=== PATIENT | male | born 1970 | race Caucasian/White ===

== ENCOUNTER → 2017-11-11 | Outpatient (CLI) | payer BC ==
--- NOTE | 2017-11-11 15:42 | NM ---
EXAMINATION TYPE: NM hepatobiliary w EF DATE OF EXAM: 11/11/2017 COMPARISON: NONE INDICATION: Biliary colic TECHNIQUE: After the intravenous administration of 4.91 mCi Tc 99m Mebrofenin hepatobiliary scintigra phy is performed. Images were obtained immediately post injection. FINDINGS: There is prompt uptake and excretion of radiotracer by the liver. Extrahepatic ducts are identified at 17 minutes. The gallbladder is visualized within 13 minutes. Small bowel activity is noted within 42 minutes. At one hour 8 ounces of oral ensure plus is given to mimic CCK and gallbladder ejection fraction is c alculated at 64 %, which is in the normal range. (Normal >35% and <80%.). IMPRESSION: 1. Normal hepatobiliary scan
== END ==
LOC: RADNMMAIN 12:53
PROVIDERS: ATTEND Family Medicine
DX: K80.50 Calculus of bile duct without cholangitis or cholecystitis without obstruction (principal)
CPT/HCPCS: 78226; A9537

== ENCOUNTER → 2018-05-05 | Outpatient (CLI) | payer BC ==
[2018-05-05 13:08] VITALS: BP 123/82; PULSE 71; RESP 18
--- NOTE | 2018-05-06 19:21 | P.PAINCN ---
History of Present Illness - Reason for Consult Consult date: 05/05/18 - History of Present Illness This is initial consultation visit for this 47 years old male, with a chronic history of severe neck pain with radiation to the upper extremities, associated with some numbness, and headache, the symptoms started 6 years ago after he hit his head at home, he denies any motor or sensory deficit he denies any fever or night sweats. Denies any change in the bowel movement or urination, pain is constant, with intensity of the pain 6-8/10, he tried physical therapy and he couldn't tolerate it because of increased pain, and he tried medication without any significant benefit, he had epidural steroid injection at different institution and he had excellent pain relief Past Medical History Past Medical History: GERD/Reflux, Hypertension History of Any Multi-Drug Resistant Organisms: None Reported Additional Past Surgical History / Comment(s): varicous vein surgery, endoscopy Past Anesthesia/Blood Transfusion Reactions: No Reported Reaction Past Psychological History: Anxiety Smoking Status: Never smoker Past Alcohol Use History: None Reported Past Drug Use History: None Reported Medications and Allergies Home Medications Medication Instructions Recorded Confirmed Type Ascorbic Acid [Vitamin C] 1 tab PO DAILY 05/05/18 05/05/18 History Butalb/Acetaminophen/Caffeine 1 tab PO DIRECTED 05/05/18 05/05/18 History [Fioricet 50-300-40 mg Capsule] Calcium Carbonate/Vitamin D3 1 tab PO DAILY 05/05/18 05/05/18 History [Caltrate 600 Plus D3 Tablet] Cyclobenzaprine [Flexeril] 1 tab PO DAILY 05/05/18 05/05/18 History D3/Folic Acid/Collagen,Hydroly 125 mg PO DAILY 05/05/18 05/05/18 History [Cyfolex Capsule] Esomeprazole Magnesium [NexIUM] 1 tab PO BID 05/05/18 05/05/18 History Esomeprazole Magnesium [NexIUM] 1 tabcap PO BID 05/05/18 05/05/18 History L.acidoph,Paracasei, B.lactis 1 tab PO DAILY 05/05/18 05/05/18 History [Probiotic] LORazepam [Ativan] 1 tab PO BID 05/05/18 05/05/18 History Metoprolol Tartrate 1 tab PO BID 05/05/18 05/05/18 History Multivitamin/Iron/Folic Acid 1 tab PO DAILY 05/05/18 05/05/18 History [Centrum Complete Multivit Tab] Venlafaxine HCl [Effexor] 1 tab PO DAILY 05/05/18 05/05/18 History Allergies Allergy/AdvReac Type Severity Reaction Status Date / Time cephalexin [From Keflex] AdvReac Diarrhea Verified 05/05/18 12:56 Physical Exam Social history : not smoker , NO ETOH , NO Illegal drugs use . Review of Systems : 1- Constitutional : no chills , no fever , no night sweats , 2- Ears : no ear discharge , no change in hearing 3-Nose, Mouth ,Throat ; no bleeding gums, no sore throat , no epistaxis , 4-Cardiovascular : Denies chest pain, , no orthopnea , no palpitation 5-Respiratory : Denies cough , no dyspnea , no hemoptysis 6-Gastrointestinal :, no change in bowel habits , no coffee- ground emesis . 7-Genitourinary : No hematuria , no discharge , no incontinence, 8-Musculoskeletal : No gait dysfunction , report neck pain , 9- Neurological : no ataxia , no tremor , no sezure , 10-Psychatric , no suicidal ideation no hallucination 11- Endocrine : no cold intolerence , no polyuria , no polydypsia , 12-Hematologic : no easy bleeding , no easy brusing , 13-Allergic / immunology : no angioedema , no wheezing ,no allergic rhinitis 14-Integumentary : no brttle nails , no change hair / nails , no foot/leg ulcers . Physical Examinations : 1-Constitutional : Cooperative , not in acute distress . 2-HEENT : nech ; supple , no Lymphadenopathy , no Thyromegaly , :eyes , no icterus, no photophobia . ENT : , normal oropharynx , no Thrush 3- Respiratory : Chest clear to auscultations Bilaterally , no wheezing . 4- Cardiovascular : regular rate and rhythem , S1 , S2 , no S3 , no S4. 5- Gastrointestinal: abdomen soft no tenderness , no organomegally . 6- Genitourinary : Defferred . 7-Integumentary : No cellulitis , no ulcers , normal skin turgor , no cyanotic . 8- neurologic : Cranial nerve II to XII intact , no focal neurological deffecit 9-psychatric : alert , oriented X 3 , appropriate affect , intact judgment and insight . 10-Lymphatic : no Lymphadenopathy. 11- musculoskeltal: normal gait Cervical Spine motor stregnth in the deltoid and biceps, normal right side , normal Left side motor stregnth biceps and the wrist extensors normal right side ,normal left side . motor stregnth in the triceps muscle . normal Right side , normal Left side deep tendon reflexes normal at the biceps , normal at Brachioradialis , normal at triceps. positive cervical facet loading test . Lumber spine moter stegnth lower extremities ,thigh and legs 5/5 Right side , 5/5 Left side Results Comments: MRI of the cervical spine C3 4 C5 6 C6 7 cervical degenerative disc disease and facet arthropathy and foraminal narrowing Assessment and Plan Plan: Assessment and plan= cervical radiculopathy, cervical spondylosis with cervical facet arthropathy. He would be a good candidate for cervical epidural steroid injections, procedure risk and benefits and alternatives discussed with the patient he agreed with the preceding Time with Patient: Greater than 30 PQRS Measure Charge Sheet Measure #130: Documentation of Current Meds in Medical Chart: Patient's medications documented in chart Measure #226: Tobacco Use: Screen & Cessation Intervention: Pt not a tobacco user Measure #111: Pneumonia Vaccination: Pneumococcal vaccine NOT administered or previously given Measure #47: Advance Care Plan: Advance care planning discussed & documented, pt chose/unable to give Measure #412: Opioid Treatment Agreement: No documentation of signed opioid treatment agreement Measure #408: Opioid Therapy Follow-up Evaluation: Patient had NO f/u eval minimum every 3 months during opioid therapy Measure #317: Preventitive Care & Scrn High Bld Press & F/U: Normal blood pressure, f/u not required Measure #128: Body Mass Index (BMI) Screening & Follow-up: BMI documented ABOVE normal parameters - f/u documented Measure #131: Pain Assessment & Follow-up: Pain positive & plan documented, Follow-up scheduled Measure #431: Unhealthy Alcohol Use Preventative Care & Scrn: Patient not identified as an unhealthy alcohol user PQRS Narrative: Smoking Status Never smoker Do You Want the Pneumonia No Vaccine AT THIS TIME? Blood Pressure 123/82 Pain Intensity [Neck] 8 Scale Used Numeric (1 - 10) Hx Alcohol Use (MH) No Home Medications: Ambulatory Orders Ascorbic Acid [Vitamin C] 1 tab PO DAILY 05/05/18 Butalb/Acetaminophen/Caffeine [Fioricet 50-300-40 mg Capsule] 1 tab PO DIRECTED 05/05/18 Calcium Carbonate/Vitamin D3 [Caltrate 600 Plus D3 Tablet] 1 tab PO DAILY Cyclobenzaprine [Flexeril] 1 tab PO DAILY 05/05/18 D3/Folic Acid/Collagen,Hydroly [Cyfolex Capsule] 125 mg PO DAILY 05/05/18 Esomeprazole Magnesium [NexIUM] 1 tab PO BID 05/05/18 Esomeprazole Magnesium [NexIUM] 1 tabcap PO BID 05/05/18 L.acidoph,Paracasei, B.lactis [Probiotic] 1 tab PO DAILY 05/05/18 LORazepam [Ativan] 1 tab PO BID 05/05/18 Metoprolol Tartrate 1 tab PO BID 05/05/18 Multivitamin/Iron/Folic Acid [Centrum Complete Multivit Tab] 1 tab PO DAILY 06/12 Venlafaxine HCl [Effexor] 1 tab PO DAILY 05/05/18
== END | disposition home or self-care (01) ==
LOC: PNWHC3 12:07
PROVIDERS: ATTEND Specialist
DX: M47.22 Other spondylosis with radiculopathy, cervical region (principal); M46.92 Unspecified inflammatory spondylopathy, cervical region; Z88.1 Allergy status to other antibiotic agents; K21.9 Gastro-esophageal reflux disease without esophagitis; I10 Essential (primary) hypertension; F41.9 Anxiety disorder, unspecified; Z79.899 Other long term (current) drug therapy
CPT/HCPCS: 99211

== ENCOUNTER → 2018-05-24 | Day surgery (SDC) | payer BC ==
[2018-05-20 08:51] VITALS: BMI 27.2
[2018-05-24 09:25] VITALS: TEMP 7.6
--- NOTE | 2018-05-24 10:29 | P.PCN ---
Date of Procedure: 05/24/18 Procedure(s) Performed: . PROCEDURE 1. Cervical epidural steroid injection under fluoroscopic guidance, C7-T1 2. Cervical epidurogram. PREOPERATIVE DIAGNOSIS: 1- Cervical radiculopathy., 2-cervical spondylosis with cervical Facet arthropathy without myelopathy POSTOPERATIVE DIAGNOSIS: : 1- Cervical radiculopathy, 2-cervical spondylosis with cervical Facet arthropathy without myelopathy ANESTHESIA: Local anesthesia with lidocaine 1 % , and moderate sedation, with Versed 2 mg and Fentanyl 100 mcg. EBL 0 PROCEDURE INDICATION: The patient with neck pain and radiculitis unresponsive to conservative treatment consents for procedure. PROCEDURE DESCRIPTION / TECHNIQUE: The patient was seen and identified in the preoperative area. Risks, benefits, complications, including but not limited to infections ,bleeding , allergic reactions to the medications ,and not complete pain releife, and alternatives were discussed with the patient, the patient agreed to proceed with the procedure and signed the consent. Patient was taken to the OR and time out was completed. The patient was placed in the prone position on the procedure table. A pillow was placed under the patients chest to increase the cervical interlaminar space. The cervical area was prepped and draped in the usual sterile fashion. Vital signs were closely monitored during the procedure. Conscious sedation was used during the procedure to decrease patients anxiety. Using anterior-posterior fluoroscopy, the C7-T1 interlaminar space was identified and the skin over this site was marked and then infiltrated with 1% lidocaine subcutaneously. Subsequently, a 20-gauge 3-1/2-inch Tuohy epidural needle was inserted and advanced toward the epidural space by means of the `` hanging-drop technique and guided by AP and lateral fluoroscopy. The correct needle position in the epidural space was verified with the injection of 2 mL of the water soluble contrast dye Isovue-200 and observing an excellent epidurogram with the epidural spread of the dye, after negative aspiration for blood and CSF and in the absence of paresthesias. Again after negative aspiration, mixture containing 20 mg Dexamethasone and 2 ml of preservative- free normal saline injected and a washout of epidurogram was seen. Needle was withdrawn intact, skin was cleansed, and bandages were applied. Complications= none. Disposition= patient was placed in supine position and transferred to the recovery room area in stable condition and there was no evidence of upper or lower extremity motor or sensory deficit after the procedure patient was discharged from recovery room after discharge criteria met and home discharge instructions was given by the staff and patient will follow with the pain clinic in 2-4 weeks
--- NOTE | 2018-05-24 10:56 | FL ---
EXAMINATION TYPE: FL guided pain mgmt statistic DATE OF EXAM: 05/24/2018 HISTORY: Pain Cervical epidural, steroid injection, 1sec fl time
[2018-05-24 11:12] VITALS: BP 127/91; PULSE 56; RESP 18
== END ==
LOC: ORPAIN 08:24
PROVIDERS: ATTEND Specialist
DX: Z88.1 Allergy status to other antibiotic agents (principal); I10 Essential (primary) hypertension; K21.9 Gastro-esophageal reflux disease without esophagitis
CPT/HCPCS: 62321

== ENCOUNTER → 2018-06-14 | Day surgery (SDC) | payer BC ==
[2018-06-09 11:37] VITALS: BMI 27.2
[~2018-06-14] MED LIST: SODIUM CHLORIDE 0.9% 500 ML 500 ML IV ONE
[2018-06-14 08:51] VITALS: TEMP 97.4
--- NOTE | 2018-06-14 09:43 | P.PCN ---
Date of Procedure: 06/14/18 Surgeon: Reji De Oliveira Description of Procedure: PREOPERATIVE DIAGNOSIS: Cervical radiculopathy Cervical degenerative disc disease POSTOPERATIVE DIAGNOSIS: Cervical radiculopathy Cervical degenerative disc disease PROCEDURE Cervical epidural steroid injection under fluoroscopic guidance at the C7-T1 interspace. ANESTHESIA: Local with 1% lidocaine 3 ml and IV sedation with Versed 2 mg ; 100 pg of fentanyl EBL: Minimal PROCEDURE INDICATION: The patient with cervical radicular symptoms unresponsive to conservative treatment. Fluoroscopy was used to optimize visualization of the needle placement and to maximize safety. He reports good relief from his last procedure. Most of his pain is in his neck. PROCEDURE DESCRIPTION / TECHNIQUE: The patient was seen and identified in the preoperative area. Risks, benefits , complications including but not limited to infections ,bleeding ,allergic reaction to the medications ,nerve damage and incomplete pain relief, and alternatives were discussed with the patient. The patient agreed to proceed with the procedure and signed the consent. IV was started, and vital signs were stable. Patient was taken to the OR and time out was completed. The patient was placed in the prone position on procedure table and a pillow was placed under the chest area.. The cervical area was prepped and draped in the usual sterile fashion. Conscious sedation was used during the procedure to decrease patient s anxiety. Vital signs was monitered during the entire procedure. Using anterior-posterior fluoroscopy, the C7-T1 interlaminar space was identified and the skin over this site was marked and then infiltrated with 1% lidocaine subcutaneously. Subsequently, a 20-gauge Tuohy epidural needle was inserted and advanced toward the epidural space using the loss of resistance technique and guided by AP and lateral fluoroscopy. The correct needle position in the epidural space was verified with the injection of contrast and observing an excellent epidurogram with the epidural spread of the dye, after negative aspiration for blood and CSF and in the absence of paresthesias. Again after negative aspiration, a 4 ml mixture containing 20 mg of Dexamethasone was injected. Needle was withdrawn intact, skin was cleansed, and bandages were applied. COMPLICATIONS: None DISPOSITION / PLANS: The patient was placed in a supine position and transferred to the recovery area in a stable condition for observation. There was no evidence of lower extremity motor or sensory deficit after the procedure. Patient was discharged from the recovery room after meeting discharge criteria. Home discharge instructions were given to the patient by the staff. The patient was reexamined prior to discharge. The patient will schedule a follow up in the clinic in 2-4 weeks.
--- NOTE | 2018-06-14 09:59 | FL ---
EXAMINATION TYPE: FL guided pain mgmt statistic DATE OF EXAM: 06/14/2018 CLINICAL HISTORY: Neck pain. TECHNIQUE: Fluoroscopy. COMPARISON: None. FINDINGS: Fluoroscopic guidance was provided during pain relief procedure performed by Dr. De Oliveira . A total of 1 second of fluoroscopic time was utilized during the procedure and single spot fluorosco pic image is acquired. Single image acquired shows needle localization at upper thoracic spine. IMPRESSION: As Above.
[2018-06-14 10:11] VITALS: BP 125/81; PULSE 57; RESP 18
== END | disposition home or self-care (01) ==
LOC: ORPAIN 08:16
PROVIDERS: ATTEND Pain Medicine Pain Medicine
DX: M50.10 Cervical disc disorder with radiculopathy, unspecified cervical region (principal); Z88.1 Allergy status to other antibiotic agents; I10 Essential (primary) hypertension; K21.9 Gastro-esophageal reflux disease without esophagitis
CPT/HCPCS: 62321; J2250; J1100; J3010; 99152

== ENCOUNTER 2018-06-30 09:17 | Day surgery (SDC) | payer BC ==
[2018-06-28 10:51] VITALS: BMI 27.9
[2018-06-30 09:33] VITALS: RESP 18; TEMP 97.8
[2018-06-30] MEDS ORDERED: LACTATED RINGERS 1,000 ML IV ONE (09:33)
[2018-06-30] MEDS ORDERED: LIDOCAINE 1% 20 ML VIAL (10MG/ML) FOR IV START INTRADERMA ONE (09:40)
--- NOTE | 2018-06-30 09:43 | P.PCN ---
Date of Procedure: 06/30/18 Preoperative Diagnosis: Cervical radiculopathy Postoperative Diagnosis: Same Procedure(s) Performed: Cervical epidural steroid injection Anesthesia: MAC Surgeon: Vijaya Silva Description of Procedure: . PROCEDURE 1. Cervical epidural steroid injection under fluoroscopic guidance, C7-T1 #3 2. Cervical epidurogram. PREOPERATIVE DIAGNOSIS: 1- Cervical Degenerative Disc Diseases 2- Cervical radiculopathy., 3-cervical spondylosis with cervical Facet arthropathy without myelopathy POSTOPERATIVE DIAGNOSIS: : 1- Cervical Degenerative Disc Diseases , 2- Cervical radiculopathy. 3-,cervical spondylosis with cervical Facet arthropathy without myelopathy ANESTHESIA: Local anesthesia with 1% lidocaine and IV sedation with Versed 1 mg and Fentanyl 50 mcg. EBL 0 PROCEDURE INDICATION: The patient with neck pain and radiculitis unresponsive to conservative treatment consents for procedure. PROCEDURE DESCRIPTION / TECHNIQUE: The patient was seen and identified in the preoperative area. Risks, benefits, complications, including but not limited to infections ,bleeding , allergic reactions to the medications ,and not complete pain Relief, and alternatives were discussed with the patient, the patient agreed to proceed with the procedure and signed the consent. Patient was taken to the OR and time out was completed. The patient was placed in the prone position on the procedure table. A pillow was placed under the patients chest to increase the cervical interlaminar space. The cervical area was prepped and draped in the usual sterile fashion. Vital signs were closely monitored during the procedure. Conscious sedation was used during the procedure to decrease patients anxiety. Using anterior-posterior fluoroscopy, the C7-T1 interlaminar space was identified and the skin over this site was marked and then infiltrated with 1% lidocaine subcutaneously. Subsequently, a 20-gauge 3-1/2-inch Tuohy epidural needle was inserted and advanced toward the epidural space by means of loss of resistance technique and guided by AP and lateral fluoroscopy. The correct needle position in the epidural space was verified with the injection of 2 mL of the water soluble contrast dye Isovue-180 and observing an excellent epidurogram with the epidural spread of the dye, after negative aspiration for blood and CSF and in the absence of paresthesias. Again after negative aspiration, mixture containing 20 mg Dexamethasone and 2 ml of preservative- free normal saline injected and a washout of epidurogram was seen. Needle was withdrawn intact, skin was cleansed, and bandages were applied. Complications= none. Disposition= patient was placed in supine position and transferred to the recovery room area in stable condition and there was no evidence of upper or lower extremity motor or sensory deficit after the procedure patient was discharged from recovery room after discharge criteria met and home discharge instructions was given by the staff and patient will follow with the pain clinic 6-8 weeks
[2018-06-30] MEDS ORDERED: IV FLUID CONTINUATION 800 ML IV ONE (10:00)
[2018-06-30 10:24] VITALS: BP 124/80; PULSE 62
--- NOTE | 2018-06-30 11:50 | FL ---
EXAMINATION TYPE: FL guided pain mgmt statistic DATE OF EXAM: 06/30/2018 COMPARISON: NONE HISTORY: Neck pain TECHNIQUE: Fluoroscopy. FINDINGS/IMPRESSION: Fluoroscopic guidance was provided during procedure performed by Dr. Silva. A total of 1 seconds of fluoroscopic time was utilized during the procedure and 1 spot images was acq uired demonstrating localization of the cervical spine.
== END 2018-06-30 10:36 | disposition home or self-care (01) ==
LOC: ORPAIN 09:17
PROVIDERS: ATTEND Hospitalist
DX: M50.10 Cervical disc disorder with radiculopathy, unspecified cervical region (principal); M47.22 Other spondylosis with radiculopathy, cervical region
CPT/HCPCS: 62321; J2250; J1100; J3010; Q9966; 62323

== ENCOUNTER → 2018-08-11 | Outpatient (CLI) | payer BC ==
--- NOTE | 2018-08-11 20:54 | MR ---
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 Additional coned-do wn sequences through the internal auditory canals and posterior cranial fossa before and after IV con trast administration. FINDINGS: Diffusion weighted images demonstrate no evidence of an acute ischemic lesion in the brain. T2/FLAIR weighted sequences show no white matter signal abnormality. The left vertebral artery is dominant. Major intracranial flow voids are intact. There is a 6 mm T2 bright and T1 hypointense, hypoenhancing round lesion within the right paramedian anterior pituitary gland. Otherwise, midline structures demonstrate partially empty sella but otherwi se normal morphology. The craniocervical junction is normal. Brain volume is age appropriate. The ventricles are of normal caliber. There is no evidence of an acute intracranial hemorrhage, infarct, mass, mass-effect or an extra-axia l fluid collection. There is no cerebellopontine angle mass. The internal auditory canals are symmetric. Brainstem and skull base abnormalities are not seen. Post contrast images demonstrate no evidence of pathologic enhancement in the posterior cranial fossa or the internal auditory canals. Stable incidental prominent arachnoid granulations in the left sigmoid sinus. Dural venous sinuses re main patent. There is no abnormal enhancement of the labyrinths. Trace mucosal thickening within the ethmoid air cells. Globes are intact. IMPRESSION: 1. No acute intracranial abnormality seen. No white matter signal abnormality. 2. No specific abnormality on acoustic MRI. 3. Incidental cystic versus hypoenhancing, 6 mm lesion within the right paramedian anterior pituitary gland. Some differential considerations include Rathke's cleft cyst or pituitary microadenoma, new f rom 2012. Correlate with laboratory assessment. Pituitary MRI can further evaluate.
== END | disposition home or self-care (01) ==
LOC: RADMRIMAIN 12:13
PROVIDERS: ATTEND Otolaryngology
DX: H93.3X9 Disorders of unspecified acoustic nerve (principal); H93.19 Tinnitus, unspecified ear; H91.90 Unspecified hearing loss, unspecified ear
CPT/HCPCS: 82565; 70553; 36415; A9585

== ENCOUNTER → 2018-08-22 | Outpatient (CLI) | payer BC ==
--- NOTE | 2018-09-04 21:42 | EEG ---
ELECTROENCEPHALOGRAM REPORT DATE OF SERVICE: 08/22/2018 ATTENDING PHYSICIAN: Dr. Victoria. VIDEO ELECTRONYSTAGMOGRAPHIC REPORT: AGE: 48 ENG INDICATIONS: Dizziness, vertigo with the problem beginning one year ago, gradual onset, getting worse. Occurs four to five times a week and dizziness lasts one to two minutes at a time. Dizziness can be precipitated by any position changes or worsened by any position changes or when in the car driving or moving ahead or in large crowds. The patient reports left hearing loss and tinnitus in both ears of a steady ringing nature and pressures in left ear. Dizziness can be accompanied by lightheadedness and headaches and can have transient double vision. VNG FINDINGS: SPONTANEOUS NYSTAGMUS: SACCADES: Saccades shows intact peak velocities, accuracies and latencies. GAZE TEST: Gaze with fixation shows no nystagmus in any of the directions of gaze including centrally with vision denied. SINUSOIDAL TRACKING: Tracking is intact at faster and slower speeds. OKN TEST: Optokinetic nystagmus shows significant asymmetry more than 50% with the patient having more difficulty looking to the left. CRUZ-HALLPIKE TEST: Cruz Hallpike maneuver is negative bilaterally although the patient has significant horizontal nystagmus in the right position and significant vertical nystagmus in the left position. However, dizziness is not reported with either ear under most periods. POSITION TEST: Static position testing shows no nystagmus in any of the six positions tested with eyes opened or with vision denied. CALORIC TEST: Caloric testing shows no unilateral caloric weakness. There is borderline bilateral weakness. IMPRESSION: Asymmetry of optokinetic nystagmus suggests central nervous system dysfunction. There were no other indicators for central nervous systems system dysfunction. Cerro-Hallpike maneuvers while there was no dizziness reported, the patient had a moderate degree of upbeat nystagmus on the left, which is an abnormal response suggesting central nervous system dysfunction. However no nystagmus is elicited on the static position testing including on the left side, so should be interpreted with caution. Clinical correlation is necessary. MMODL / IJN: [id number] /
== END | disposition home or self-care (01) ==
LOC: NEUROMAIN 08:40
PROVIDERS: ATTEND Otolaryngology
DX: H55.09 Other forms of nystagmus (principal); R42 Dizziness and giddiness
CPT/HCPCS: 92537; 92540

== ENCOUNTER → 2018-10-05 | Outpatient (CLI) | payer BC ==
[2018-10-05 18:41] LABS: Albumin 4.3 g/dL (3.80-4.90); Albumin/Globulin Ratio 1.87 (1.60-3.17); Anion Gap 6.3 mmol/L (4.00-12.00); Calcium 7.4 mg/dL (8.7-10.3); Carbon Dioxide 30.7 mmol/L (21.6-31.8); Globulin 2.3 g/dL (1.6-3.3); Phosphorus 3.7 mg/dL (2.4-5.1); Potassium 4.1 mmol/L (3.5-5.5); Total Bilirubin 0.5 mg/dL (0.3-1.2); Total Protein 6.6 g/dL (6.2-8.2)
== END | disposition home or self-care (01) ==
LOC: LABWHC1 13:04
PROVIDERS: ATTEND Internal Medicine
DX: E20.0 Idiopathic hypoparathyroidism (principal)
CPT/HCPCS: 36415; 80053; 84100

== ENCOUNTER → 2018-12-09 | Outpatient (CLI) | payer BC ==
[2018-12-09 18:59] LABS: Anion Gap 5.9 mmol/L (4.00-12.00); Calcium 7.6 mg/dL (8.7-10.3); Carbon Dioxide 31.1 mmol/L (21.6-31.8); Potassium 3.6 mmol/L (3.5-5.5)
[2018-12-09 20:55] LABS: Gliadin AB IgA, Unit <0.2 U/mL
== END ==
LOC: LABWHC1 11:22
PROVIDERS: ATTEND Allergy & Immunology
DX: E20.9 Hypoparathyroidism, unspecified (principal); K21.9 Gastro-esophageal reflux disease without esophagitis
CPT/HCPCS: 36415; 80048; 81050; 82784; 83516; 86255

== ENCOUNTER → 2019-02-20 | Outpatient (CLI) | payer BC ==
[2019-02-20 17:14] LABS: African American GFR (CKD) 102.7 (60.0-200.0); Anion Gap 9.9 mmol/L (4.00-12.00); Calcium 8.8 mg/dL (8.7-10.3); Carbon Dioxide 30.1 mmol/L (21.6-31.8); Potassium 3.6 mmol/L (3.5-5.5)
== END | disposition home or self-care (01) ==
LOC: LABWHC1 09:59
PROVIDERS: ATTEND Internal Medicine
DX: E20.0 Idiopathic hypoparathyroidism (principal)
CPT/HCPCS: 36415; 80048

== ENCOUNTER → 2019-04-17 | Outpatient (CLI) | payer BC ==
[2019-04-17 17:30] LABS: African American GFR (CKD) 91.5 (60.0-200.0); Anion Gap 12.4 mmol/L (4.00-12.00); BUN/Creat Ratio 11.82 Ratio (12.00-20.00); Calcium 8.2 mg/dL (8.7-10.3); Carbon Dioxide 30.6 mmol/L (21.6-31.8); Potassium 3.8 mmol/L (3.5-5.5)
[2019-04-17 18:07] LABS: Creatinine 24 Hour,Urine 1.55 g/24Hr (1.00-2.00)
[2019-04-17 18:23] LABS: Calcium 24 Hour,Urine 556.8 mg/24Hr (100.0-300.0)
== END | disposition home or self-care (01) ==
LOC: LABWHC1 10:48
PROVIDERS: ATTEND Internal Medicine
DX: E20.8 Other hypoparathyroidism (principal)
CPT/HCPCS: 36415; 80048; 81050; 82340; 82570

== ENCOUNTER → 2019-07-27 | Outpatient (CLI) | payer BC ==
[2019-07-27 23:56] LABS: Albumin 4.4 g/dL (3.80-4.90); Albumin/Globulin Ratio 2.1 (1.60-3.17); Anion Gap 7.8 mmol/L (4.00-12.00); Calcium 8.1 mg/dL (8.7-10.3); Carbon Dioxide 33.2 mmol/L (21.6-31.8); Globulin 2.1 g/dL (1.6-3.3); Potassium 3.7 mmol/L (3.5-5.5); Total Bilirubin 0.4 mg/dL (0.3-1.2); Total Protein 6.5 g/dL (6.2-8.2)
== END | disposition home or self-care (01) ==
LOC: LABWHC1 16:46
PROVIDERS: ATTEND Internal Medicine
DX: E83.51 Hypocalcemia (principal); E20.0 Idiopathic hypoparathyroidism
CPT/HCPCS: 36415; 80053

== ENCOUNTER → 2019-09-13 | Outpatient (CLI) | payer BC ==
[2019-09-13 19:10] LABS: African American GFR (CKD) 115.8 (60.0-200.0); Albumin 4.3 g/dL (3.80-4.90); Albumin/Globulin Ratio 2.39 (1.60-3.17); Anion Gap 8.5 mmol/L (4.00-12.00); BUN/Creat Ratio 12.22 Ratio (12.00-20.00); Calcium 8.1 mg/dL (8.7-10.3); Carbon Dioxide 30.5 mmol/L (21.6-31.8); Globulin 1.8 g/dL (1.6-3.3); Non-African American GFR(CKD) 99.9 (60.0-200.0); Potassium 3.6 mmol/L (3.5-5.5); Total Bilirubin 0.6 mg/dL (0.3-1.2); Total Protein 6.1 g/dL (6.2-8.2)
== END | disposition home or self-care (01) ==
LOC: LABWHC1 13:49
PROVIDERS: ATTEND Internal Medicine
DX: E20.0 Idiopathic hypoparathyroidism (principal)
CPT/HCPCS: 36415; 80053

== ENCOUNTER → 2020-02-22 | Outpatient (CLI) | payer BC ==
[2020-02-22 17:07] LABS: Albumin 4.4 g/dL (3.80-4.90); Albumin/Globulin Ratio 1.83 (1.60-3.17); Anion Gap 8.6 mmol/L (4.00-12.00); Calcium 9.1 mg/dL (8.7-10.3); Carbon Dioxide 32.4 mmol/L (21.6-31.8); Globulin 2.4 g/dL (1.6-3.3); Magnesium 1.9 mg/dL (1.5-2.4); Phosphorus 4.3 mg/dL (2.4-5.1); Potassium 3.9 mmol/L (3.5-5.5); Total Bilirubin 0.7 mg/dL (0.3-1.2); Total Protein 6.8 g/dL (6.2-8.2)
== END | disposition home or self-care (01) ==
LOC: LABWHC1 10:50
PROVIDERS: ATTEND Internal Medicine
DX: E20.9 Hypoparathyroidism, unspecified (principal)
CPT/HCPCS: 36415; 80053; 82306; 83735; 84100

== ENCOUNTER → 2022-11-12 | Outpatient (CLI) | payer BC ==
[2022-11-12 21:48] LABS: Albumin 4.6 g/dL (3.8-4.9); BUN/Creat Ratio 11.73 Ratio (12.00-20.00); Blood Urea Nitrogen 12.9 mg/dL (9.0-27.0); Calcium 8.3 mg/dL (8.7-10.3); Carbon Dioxide 29.2 mmol/L (20.0-27.5); Non-African American GFR(CKD) 76.8 (60.0-200.0); Phosphorus 4.9 mg/dL (2.4-5.1); Potassium 3.3 mmol/L (3.5-5.5)
== END | disposition home or self-care (01) ==
LOC: LABWHC1 14:28
PROVIDERS: ATTEND Internal Medicine
DX: E20.0 Idiopathic hypoparathyroidism (principal)
CPT/HCPCS: 36415; 80069